=== PATIENT | female | born 1995 | race Caucasian/White ===

== ENCOUNTER 2020-04-30 19:15 | Emergency (ER) | payer BC ==
[~2020-04-30] VITALS: Ht 167.6 cm; Wt 97.3 kg
[2020-04-30 19:17] VITALS: BP 148/89
== END 2020-04-30 20:47 | disposition home or self-care (01) ==
LOC: ED 19:44
DX: S80.821A Blister (nonthermal), right lower leg, initial encounter (principal); L55.0 Sunburn of first degree; R60.0 Localized edema; X58.XXXA Exposure to other specified factors, initial encounter; Y93.89 Activity, other specified; Y92.89 Other specified places as the place of occurrence of the external cause; Y99.8 Other external cause status
CPT/HCPCS: 99282